=== PATIENT | male | born 1945 | race Caucasian/White ===

== ENCOUNTER 2016-11-13 18:22 | Inpatient (IN) | payer MEDICARE ==
[~2016-11-13] VITALS: Ht 188 cm; Wt 51.3 kg
--- NOTE | ~2016-11-13 | HEMODYNAMI ---
PATIENT:CONNER MCGEE MEDICAL RECORD: [id number] : 47 LOCATION:[place] [address] ADMISSION DATE: 11/13/16 Generatedon:11/19/201610:45 Patient name: CONNER MCGEE Patient #: [id number] SSN: : 1945 Date of study: 11/19/2016 Page: Of Hemodynamic Procedure Report Patient Data Patient Demographics Procedure consent was obtained First Name: CONNER Gender: Male Last Name: EVERARDO : 1945 [facility] Initial: E Age: 71 year(s) Patient #: [id number] Race: Unknown Additional ID: [id number] Contact details Address: [address] [place] [address] State: [place] City: [facility] Zip code: [address] Admission Admission Data Admission Date: 11/13/2016 Admission Time: 18:22 Room #: [facility] Procedure Procedure Types Cath Procedure Peripheral Cath Diagnostic Procedure Gastric J- Tube Replacement/Exchange Procedure Description Procedure Date Procedure Date: 11/19/2016 Procedure Start Time: 10:19 Procedure End Time: 10:44 Procedure Staff Name Function Earle Howard MD Performing Physician Rafat Santos RT Scrub Karla Navarro RN Nurse Shy Alfred RN Nurse Chandrika Viera RT Wine Consultant Chandrika Viera RT Monitor Procedure Data Cath Procedure Fluoroscopy Diagnostic fluoroscopy Total fluoroscopy Time: 7.6 time: 7.6 min min Diagnostic fluoroscopy Total fluoroscopy dose: dose: 45.8 mGy 45.8 mGy Contrast Material Contrast Material Type Amount (ml) Isovue 300 35 Diagnostic catheters Device Type Used For End Catheter Placement Merit Impress KA2 5Fr 65CM catheter Merit Impress KA 2 5Fr 40CM catheter Hemodynamics Rest Pre Cath Intra NCS Post Cath Procedure Log Time Note 9:37:11 Rafat Santos RT (R) (CV) sent for patient. Start room use. 9:37:14 Time tracking: Regular hours 9:48:25 Patient received from Other to IR Alert and oriented. Tansferred to table in Supine position. 9:48:45 Signed procedure consent form obtained from patient. 9:48:56 Pre-procedure instructions explained to patient. 9:49:03 Use device set IR Diagnostic 9:49:05 Bag Decanter opened to sterile field. 9:49:05 Sterile Angiographic Pack opened to sterile field. 9:49:09 Pre-op teaching completed and patient verbalized understanding. 9:49:12 Patient pain scale 0/10 ?. 9:49:22 Left abdomen area was prepped with chlora-prep and draped in sterile fashion 9:54:25 Sedation plan: Local Anesthetic Lidocaine 9:54:28 Sharps counted by scrub and verified by R.N. 9:58:43 Physician paged 9:58:43 Physician responded to page. 10:14:05 Physician arrived 10:15:01 --------ALL STOP TIME OUT------ 10:15:03 Final Timeout: patient, procedure, and site verified with staff and physician. All members of the team are in agreement. 10:15:20 Left abdomen site verified by team. 10:15:25 Physical assessment completed. ASA score P 2 - A patient with mild systemic disease as per Earle Howard MD. 10:16:59 A Merit Impress KA2 5Fr 65CM catheter was advanced over the wire and used for . 10:19:16 Terumo ANGLED SS 260CM glide wire opened to sterile field. 10:19:24 Procedure started. 10:19:24 Full Disclosure recording started 10:19:48 Contrast injected into the existing tube. 10:20:10 Catheter advanced into existing tube. 10:21:06 DILATOR, VESSEL 4/20 opened to sterile field. 10:21:37 Catheter was removed. Glidewire advanced into the existing tube. 10:29:24 LUCIA JEJUNAL FEEDING TUBE 14FR. opened to sterile field. 10:31:18 A Merit Impress KA 2 5Fr 40CM catheter was advanced over the wire and used for . 10:38:38 New J tube advanced over the wire. 10:39:09 Contrast was injected into the balloon to hold the tube in place. 10:40:15 Procedure ended.(Physican Out) 10:41:27 Contrast amount:Isovue 300 35ml. 10:42:09 Fluoroscopy time 07.60 minutes. 10:42:15 Fluoroscopy dose: 45.8 mGy 10:42:15 Flurop Dose total: 45.8 10:42:21 Sharps counted by scrub and verified by REbonieNEbonie 10:44:23 Procedure and supply charges have been captured, reviewed, submitted and are correct. 10:44:25 See physician's report for complete and final results. 10:44:30 Report given to Other. 10:44:35 Patient transfered to Other with Bed. 10:44:38 Procedure ended. 10:44:38 Full Disclosure recording stopped 10:44:50 End room use (Document Last) Device Usage Item Name Manufacture Quantity Catalog Hospital Part Current Minim al Lot# / Number Charge Number Stock Stock Serial# Code Bag Decanter Microtek 1 [id number] 5 [employer] Sterile Cardinal 1 [id number] 553912 5 Angiographic Health Pack [facility] 1 [id number] 332359 [id number] 5 Impress KA2 5Fr 65CM catheter Terumo Terumo 1 [id number] 108028 600828 366239 5 ANGLED SS 260CM glide wire DILATOR, [employer] 1 [id number] 11835 [id number] 5 [id number] VESSEL 12/05 LUCIA JEJUNAL JANICE-EVERARDO 1 0200-14 306251 5 FEEDING TUBE 14FR. [facility] 1 [id number] 396537 573309 5 Impress KA 2 5Fr 40CM catheter Signature Audit Dukedom Stage Time Signature Unsigned Intra-Procedure 11/19/2016 Chandrika Viera 10:45:09 AM RT(R) Signatures Monitor : Chandrika Viera Signature : RT Date : Time : [facility] [address] [place] [address]
--- NOTE | 2016-11-13 17:50 | NUR ---
RECIEVED BY AMBULANCE/STRETCHER.ALERT;ON O2@2L/NC.ORIENTED TO ROOM,SURROUNDINGS AND CL.
--- NOTE | 2016-11-13 18:00 | NUR ---
PT RECIEVED FROM [facility] VIA AMBULANCE STRETCHER. ADMITTED TO ROOM 1117 B. ADMIT FAXED TO ER ADMISSIONS. AWAITING HIM TO BE ENTERED TO DO ADMISSION.
[~2016-11-13 18:22] MED LIST: SULFATRIM SUSP100 ML GT
[2016-11-13 18:53] VITALS: BP 114/56
--- NOTE | 2016-11-13 19:45 | NUR ---
PT RECEIVED IN BED WITH EYES CLOSED AND CHEST RISING. NO SIGN/SYMPTOMS OF DISTRESS NOTED AT THIS TIME. NO NEEDS MADE KNOWN. WILL CONTINUE TO OBSERVE. CALL LIGHT IN REACH.
[2016-11-13 20:51] VITALS: BP 114/56
[2016-11-13] MEDS ORDERED: PREDNISOLON5 MG/5 ML PEG (23:06)
[2016-11-13] MEDS ORDERED: ELDERTONIC PT (23:12)
[2016-11-13] MEDS ORDERED: IPRATROPIUM BR21 MCG NASAL (23:23)
[2016-11-13] MEDS ORDERED: FLUOROMETHOLONE5 ML EACH EYE (23:36)
[2016-11-13] MEDS ORDERED: ASPIRIN300 MG RC (23:42)
[2016-11-13] MEDS ORDERED: DURAGESIC1 PATCH .1 TRANSDERM (23:49)
[2016-11-13] MEDS ORDERED: ARTIFICIAL TEAR15 ML EACH EYE (23:53)
[2016-11-14] MEDS ORDERED: LACTINEX GRANUL1 PCK GT (00:27)
[2016-11-14 01:35] VITALS: BP 114/56
--- NOTE | 2016-11-14 02:30 | NUR ---
PT RECEIVES FIRST DOSE OF SULFAMETHOXAZOLE/TRIMETHOPRIM WITH LACTINEX VIA J-TUBE. TOLERATED WELL. PT PRESENTS WITH BLOODY SPUTUM WITH A CLOT THEN BLOODY TINGED SPUTUM. SPUTUM LIGHT PINK TINGED. WILL CONTINUE TO OBSERVE FOR CHANGES. PT WITH HISTORY OF HEMOPTYSIS. CALL LIGHT IN REACH.
[2016-11-14 05:56] LABS: BASOPHILS 0.4 % (0.0-2.0); EOSINOPHILS 7.9 % (0-7); HEMATOCRIT 33.2 % (42.0-54.0); HEMOGLOBIN 10.6 g/dL (13.5-17.5); IMMATURE GRANULOCYTES 0.3 % (0-5); LYMPHOCYTES 21.2 % (15-50); MCH 30.3 pg (26.0-34.0); MCHC 31.9 g/dL (31.0-37.0); MCV 94.9 fL (80.0-100.0); MEAN PLATELET VOLUME 11.4 fL (7.4-10.4); MONOCYTES 13.4 % (2-11); NEUTROPHILS 56.8 % (40-80); PLATELET COUNT 197 10x3/uL (130-400); RDW 16.6 % (11.5-14.5); WBC 11.5 10x3/uL (4.8-10.8)
[2016-11-14 06:12] LABS: CALC OSMOLALITY 265 mosm/kg (275-300); CALCIUM 9.1 mg/dL (8.5-10.1); CARBON DIOXIDE 34.2 mmol/L (21.0-32.0); CHLORIDE - SERUM 95 mmol/L (98-107); GLUCOSE 87 mg/dL (74-106); POTASSIUM - SERUM 4.5 mmol/L (3.5-5.1); SODIUM 131 mmol/L (136-145); UREA NITROGEN 23 mg/dL (7-18); eGFR NON AFRICAN AMERICAN 78 mL/min (90-120)
--- NOTE | 2016-11-14 07:00 | NUR ---
PT WAS RECEIVED IN HIS ROOM AWAKE AND ORIENTED X 3. HE IS NPO. J-TUBE IS PATENT AND HAS CONTINUOUS FEEDING BEING DELIVERED THROUGH IT AT PRESCRIBED RATE OF FLOW. HE WEARS 02 PER NC AT 2L/MIN. VITAL SIGNS WNL. HE HAS AN IV IN HIS LEFT WRIST THAT IS SALINE LOCKED. HE IS SAXMAN. WEARS GLASSES BUT HE LEFT THEM AT HOME WELL HIS HEARING AIDES. WILL BE MONITORING PT THROUGHOUT THIS SHIFT AND ASSISTING PRN WITH ADL'S. NO SIGNS OF ANY DISCOMFORT OR DISTRESS. CALL LIGHT IS IN REACH.
--- NOTE | 2016-11-14 08:37 | NUR ---
PT IN BED WITH EYES CLOSED AND EASILY AROUSE TO VERBAL STIMULI. FENTANYL PATCH CHANGED PER ORDER. NO OTHER CONCERNS MADE KNOWN AT THIS TIME. CALL LIGHT IN REACH.
[2016-11-14 10:17] VITALS: Ht 188 cm; Wt 51.3 kg
--- NOTE | 2016-11-14 10:33 | NUR ---
Nutrition Note: Pt was on Vital 1.5 kcal formula at [facility]. [facility] does not currently carry this formula. Will change pt's formula to adequately meet pt's est nutritional needs. Will put order in to start Osmolite 1.5 @ 20 ml/hr. Increase 10 ml every 6 hours as tolerated to goal rate of 40 ml/hr. Water flushes 15 ml/hr for now as Na is low. Pt should be monitored closely for s/s of Refeeding Syndrome. RD will continue to monitor pt progress.
[2016-11-14 10:41] VITALS: BP 103/50
[2016-11-14 19:38] VITALS: BP 111/56
--- NOTE | 2016-11-15 00:36 | NUR ---
PT RECEIVED IN BED WITH HEAD OF BED WITH EYES OPEN WATCHING TV. NO COMPLAINTS OR NEEDS MADE KNOWN AT THIS TIME. CALL LIGHT IN REACH.
--- NOTE | 2016-11-15 06:05 | NUR ---
PT IN BED WITH EYES OPEN WATCHING TV. BEDDING CHANGED DUE TO SPILT URINE FROM URINAL. RECEIVED MEDICATIONS PER MAR. NO COMPLAINTS OR CONCERNS MADE KNOWN. CALL LIGHT IN REACH.
[2016-11-15 06:38] LABS: BASOPHILS 0.4 % (0.0-2.0); EOSINOPHILS 7.8 % (0-7); HEMATOCRIT 33.5 % (42.0-54.0); HEMOGLOBIN 10.6 g/dL (13.5-17.5); IMMATURE GRANULOCYTES 0.4 % (0-5); LYMPHOCYTES 24.8 % (15-50); MCH 30.4 pg (26.0-34.0); MCHC 31.6 g/dL (31.0-37.0); MEAN PLATELET VOLUME 11.4 fL (7.4-10.4); NEUTROPHILS 53.6 % (40-80); PLATELET COUNT 205 10x3/uL (130-400); RBC 3.49 10x6/uL (4.20-6.10); RDW 16.7 % (11.5-14.5); WBC 11.2 10x3/uL (4.8-10.8)
[2016-11-15 06:51] LABS: CALC OSMOLALITY 264 mosm/kg (275-300); CALCIUM 9.3 mg/dL (8.5-10.1); CARBON DIOXIDE 35.6 mmol/L (21.0-32.0); CHLORIDE - SERUM 95 mmol/L (98-107); GLUCOSE 77 mg/dL (74-106); POTASSIUM - SERUM 4.7 mmol/L (3.5-5.1); SODIUM 131 mmol/L (136-145); UREA NITROGEN 22 mg/dL (7-18); eGFR NON AFRICAN AMERICAN 78 mL/min (90-120)
--- NOTE | 2016-11-15 07:30 | NUR ---
RESTING QUIETLY IN BED CALL LIGHT IN REACH
[2016-11-15 08:44] VITALS: BP 91/45
[2016-11-15 19:38] VITALS: BP 100/53
--- NOTE | 2016-11-15 22:28 | NUR ---
PT IN BED, WATCHING TV, 02 @ 2L, VIA N/C, NO COMPLAINTS AT THIS TIME, BED IN LOWEST POSITION AND CALL LIGHT WITHIN REACH.
--- NOTE | 2016-11-15 23:12 | NUR ---
PT. IN BED WITH HOB UP GREATER THAN 30 DEGREES. PT. LYING ON HIS LEFT SIDE WITH EYES CLOSED AND RESP. EVEN. TUBEFEEDING VIA PUMP AT BEDSIDE. CALL LIGHT WITHIN REACH.
--- NOTE | 2016-11-16 03:00 | NUR ---
PT IN BED, EYES CLOSED, CHEST RISING AND FALLING, 02 @ 2L VIA N/C, BED IN LOWEST POSITION AND CALL LIGHT WITHIN REACH.
--- NOTE | 2016-11-16 05:15 | NUR ---
PT IN BED, EYES CLOSED, CHEST RISING AND FALLING, 02 @ 2L VIA N/C, OSMOLITE RUNNING, BED IN LOWEST POSITION AND CALL LIGHT WITHIN REACH.
[2016-11-16 07:00] VITALS: BP 96/49
--- NOTE | 2016-11-16 07:30 | NUR ---
RESTING ON LEFT SIDE IN BED. REMAINS NPO. TUBE FEEDS INFUSING ORDERED
[2016-11-16 07:43] LABS: MAGNESIUM - SERUM 1.8 mg/dL (1.8-2.4); PHOSPHOROUS 3.3 mg/dL (2.5-4.9)
[2016-11-16 11:34] LABS: EOSINOPHILS 6.5 % (0-7); HEMATOCRIT 33.2 % (42.0-54.0); HEMOGLOBIN 10.5 g/dL (13.5-17.5); IMMATURE GRANULOCYTES 0.5 % (0-5); LYMPHOCYTES 32.4 % (15-50); MCH 30.6 pg (26.0-34.0); MCHC 31.6 g/dL (31.0-37.0); MCV 96.8 fL (80.0-100.0); MEAN PLATELET VOLUME 12.1 fL (7.4-10.4); MONOCYTES 10.1 % (2-11); NEUTROPHILS 49.5 % (40-80); PLATELET COUNT 211 10x3/uL (130-400); RBC 3.43 10x6/uL (4.20-6.10); RDW 16.6 % (11.5-14.5); WBC 9.3 10x3/uL (4.8-10.8)
[2016-11-16 11:39] LABS: APTT 32.1 SECONDS (22.8-39.4); INR 0.95 (0.85-1.17); PROTIME 12.5 SECONDS (11.6-15.0)
--- NOTE | 2016-11-16 12:03 | NUR ---
STILL LAYING IN BED. IS TAKOTNA AND HAS VERY SOFT VOICE THAT IS HARD TO UNDERSTAND. USES URINAL.
--- NOTE | 2016-11-16 16:20 | NUR ---
WORKED IN THERAPY TODAY. IS VERY WEAK AND FRAIL.
[2016-11-16 21:17] VITALS: BP 102/54
--- NOTE | 2016-11-16 21:17 | NUR ---
PT IN BED, WATCHING TV, NO COMPLAINTS AT THIS TIME, BED IN LOWEST POSITION AND CALLL IGHT WITHIN REACH.
--- NOTE | 2016-11-16 23:27 | NUR ---
PT. IN BED WITH HOB UP AT LEAST 30 DEGREES AND HIS TUBEFEEDING IS INFUSING VIA PUMP WITHOUT ANY PROBLEMS. PT. DENIES ANY NEEDS AT THIS TIME AND HAS HIS CALL LIGHT WITHIN REACH.
--- NOTE | 2016-11-17 01:48 | NUR ---
D/C LEFT FOREARM SALINE LOC. CATH TIP INTACT. PT TOLERATED PROCEDURE WELL.
--- NOTE | 2016-11-17 02:17 | NUR ---
PT IN BED, WATCHING TV, 02 @ 2L VIA N/C, BED IN LOWEST POSITION AND CALL LIGHT WITHIN REACH.
--- NOTE | 2016-11-17 03:47 | NUR ---
PT IN BED, EYES CLOSED, CHEST RISING AND FALLING, 02 @ 2L VIA N/C, OSMOLITE RUNNING, BED IN LOWEST POSITION AND CALL LIGHT WITHIN REACH.
[2016-11-17 07:00] VITALS: BP 113/68
--- NOTE | 2016-11-17 07:30 | NUR ---
RESTING QUIETLY IN BED CALL LIGHT I NREACH
--- NOTE | 2016-11-17 12:02 | NUR ---
SITTING UP IN BED WATCHING TV. STILL HAVING SOME BLOODY SPUTUM AT TIMES. DOES NOT HAVE DIFFICULTY CLEARING AIRWAY. VERY WEAK. STILL GETTING CONTINUOUS TUBE FEEDS VIA JPEG AT 47CC/HR. USES URINAL IN BED FOR ELIMINATION NEEDS. VOICE IS A WHISPER AT BEST. WEARS OXYGEN AT ALL TIMES. DENIES PAIN
--- NOTE | 2016-11-17 16:00 | NUR ---
RESTING QUIETLY IN BED. LAYS ON SIDE. DENIES NEEDS
[2016-11-17 19:52] VITALS: BP 101/49
--- NOTE | 2016-11-17 19:52 | NUR ---
PT IN BED WITH HOB UP FOR COMFORT, WATCHING TV, EMPTIED URINAL, PT STATED HE HAS NOT HAD A BM IN ABOUT 8 DAYS, LEFT NOTE FOR DR. GARCÍA, BED IN LOWEST POSITION AND CALL LIGHT WITHIN REACH.
--- NOTE | 2016-11-18 00:07 | NUR ---
TUBE FEEDING BAG CHANGED.
--- NOTE | 2016-11-18 01:55 | NUR ---
PT. LYING ON HIS LEFT SIDE WITH HOB UP 30 DEGREES WITH TUBEFEEDING INFUSING VIA PUMP WITHOUT ANY ALARMS. EYES ARE CLOSED AND RESP. ARE EVEN. CALL LIGHT WITHIN REACH.
--- NOTE | 2016-11-18 04:24 | NUR ---
PT IN BED WITH HOB UP FOR COMFORT, EYES CLOSED, CHEST RISING AND FALLING, TUBE FEEDING RUNNING, BED IN LOWEST POSITION AND CALL LIGHT WITHIN REACH.
--- NOTE | 2016-11-18 06:00 | NUR ---
WHILE ATTEMPTING TO FLUSH FEEEDING TUBE OBSERVED FEEDING LEAKING FROM AROUND INSERTION SITE, CHARGE NURSE CEDRICK NIETO CAME TO ASSESS SITUATION AND NOTICED THERE WERE NO STITCHES HOLDING THE TUBE IN PLACED AND THAT IT LOOKED TO BE APPROXIMATELY 6 IN. OUT. TIME ATTEMPTED TO REINSERT AND WAS MET WITH RESISTANCE. SITE CLEANED AND DRAIN SPONGE SECURED TO SKIN AND TUBE SECURED ON TOP OF THAT. MD WILL BE NOTIFIED OF SITUATION.
[2016-11-18 07:26] LABS: BASOPHILS 0.5 % (0.0-2.0); EOSINOPHILS 1.4 % (0-7); IMMATURE GRANULOCYTES 0.5 % (0-5); LYMPHOCYTES 25.5 % (15-50); MCH 29.9 pg (26.0-34.0); MCHC 31.3 g/dL (31.0-37.0); MCV 95.5 fL (80.0-100.0); MEAN PLATELET VOLUME 11.4 fL (7.4-10.4); MONOCYTES 12.9 % (2-11); NEUTROPHILS 59.2 % (40-80); PLATELET COUNT 189 10x3/uL (130-400); RBC 3.35 10x6/uL (4.20-6.10); WBC 7.8 10x3/uL (4.8-10.8)
[2016-11-18 07:38] LABS: CALC OSMOLALITY 266 mosm/kg (275-300); CARBON DIOXIDE 33.2 mmol/L (21.0-32.0); CHLORIDE - SERUM 96 mmol/L (98-107); POTASSIUM - SERUM 4.7 mmol/L (3.5-5.1); SODIUM 132 mmol/L (136-145); UREA NITROGEN 25 mg/dL (7-18); eGFR NON AFRICAN AMERICAN 78 mL/min (90-120)
[2016-11-18 07:49] LABS: GLUCOSE 64 mg/dL (74-106)
[2016-11-18 08:00] VITALS: BP 104/66
--- NOTE | 2016-11-18 13:22 | NUR ---
DR TORRES CAME TO ROOM AND PULLED OLD J-PEG OUT AND REPLACED IT WITH 18G F/C. DR TORRES STATED THAT WILL WORK FOR NOW TIL NEW JPEG CAN BE PLACED IN INTERVENTIONAL RADIOLOGY.
--- NOTE | 2016-11-18 17:54 | NUR ---
RESTING IN BED WATCHING TV. FEEDING PUMP INFUSING VIA TEMP JPEG.. HAD LARGE RESULTS FROM SUPPISITORY.
--- NOTE | 2016-11-18 20:10 | NUR ---
PT RECEIVED IN BED TALKING ON PHONE. NO NEEDS MADE KNOWN AT THIS TIME. CALL LIGHT IN REACH.
[2016-11-18 20:45] VITALS: BP 112/54
--- NOTE | 2016-11-19 03:15 | NUR ---
PT IN BED WITH EYES CLOSED AND CHEST RISING. EASILY AROUSED TO VERBAL STIMULI. TUBE FEEDING BAGS AND FLUSHING SYRINGE CHANGED. NO CONCERNS MADE KNOWN. CALL LIGHT IN REACH.
--- NOTE | 2016-11-19 05:49 | NUR ---
PT IN BED WITH EYES OPEN WATCHING TV. RECEIVED MEDICATIONS VIA J-TUBE WITHOUT DIFFICULTY. NO CONCERN MADE KNOWN. CALL LIGHT IN REACH.
--- NOTE | 2016-11-19 08:12 | CN ---
PATIENT NAME:CONNER MCGEE MEDICAL RECORD: [id number] : 47 LOCATION:[id number] ADMIT DATE: 11/13/16 ACCOUNT: [id number] CONSULTING PHYSICIAN: BRIGID TORRES MD REFERRING PHYSICIAN: YANELY GARCÍA MD DATE OF CONSULTATION: 11/18/2016 Surgical Consultation CONSULTING PHYSICIAN: Dr. Brigid Torres. REASON FOR CONSULTATION: Nonfunctioning jejunostomy tube. HISTORY OF PRESENT ILLNESS: A 71-year-old male, who was admitted to rehab from his previous hospitalization including a left lung pneumonia, severe dysphagia, aspiration pneumonia. Just prior to that, he had had a J-tube replaced. He says that J-tube has been there for about 6 weeks. He has suffered from chronic illness, cachexia, physical deconditioning, severe weight loss. The patient has a feeding jejunostomy because he has had a history of partial gastrectomy. PAST MEDICAL HISTORY: Pneumonia, dysphagia, coronary artery disease, hypothyroidism, severe protein-calorie malnutrition, multiple myeloma, gastric cancer, chronic kidney disease, chronic steroid therapy. PAST SURGICAL HISTORY: Bone marrow transplant, vena cava filter, partial gastrectomy, partial colectomy, J-tube placement, and total hip replacement. ALLERGIES: COUMADIN, STATINS AND PENICILLINS. MEDICATIONS: Include Prelone, multivitamin, Atrovent, fluorometholone, aspirin, Duragesic, fentanyl, and Bactrim. HABITS: No history of alcohol or tobacco use currently. FAMILY HISTORY: Noncontributory. SOCIAL HISTORY: The patient is . He is currently a nonsmoker, nondrinker. He hopes to return home, ambulating with a walker and a cane. REVIEW OF SYSTEMS: A 12-point review of systems was obtained, pertinent positive and negative per the HPI. PHYSICAL EXAMINATION: VITAL SIGNS: Stable. He is afebrile, temperature 97.3, pulse rate 72, respirations 16, blood pressure ____, and satting 97% on 2 liters nasal cannula. GENERAL: Cachectic elderly male, in mild distress. EYES: Extraocular muscles are intact. EAR, NOSE, AND THROAT: Poor dentition. Mucous membranes are dry. LUNGS: Clear in the upper romero. HEART: Normal sinus rhythm. ABDOMEN: Soft, nontender, and nondistended. There is J-tube placed in the left lateral quadrant. EXTREMITIES: He is emaciated and thin. NEUROLOGIC: GCS is 15. CONSULT REPORT [id number] CONNER MCGEE LABORATORY DATA: Please see electronic medical record for full list of laboratory data. ASSESSMENT: A 71-year-old gentleman with pneumonia, dysphagia and J-tube or feeding tube dysfunction. PLAN: The patient's prior jejunostomy tube was removed. An 18-Prydeinig feeding tube was placed without fluoroscopic guidance at the bedside, it was secured in place. Next, a feeding tube study was performed, which showed the tube to be within the small bowel. Images were personally reviewed. May resume tube feedings and medications at this time. Recommend IR consultation for placement of a J-tube over a guidewire. The patient tolerated the procedure well. No complications occurred. TRANSINT:[id number] Voice Confirmation ID: [id number] DOCUMENT ID: [id number] BRIGID TORRES MD at 0812 CC: [id number] DICTATION DATE: 11/18/162155 CASTER INVESTMENT CASTING: 11/19/16 0137 ADM IN [place] [id number] [place] [address]
[2016-11-19 08:39] VITALS: BP 117/55
--- NOTE | 2016-11-19 09:45 | NUR ---
CONSENT OBTAINED FOR JEJUNOSTOMY TUBE REPLACMENT FROM PT. PT TRANSFERRED TO ir WITH STAFF VIA BED. PORTABLE o2 AT 2 LPM/NC.
--- NOTE | 2016-11-19 10:50 | NUR ---
PT ALERT AND ORIENTED X 3, RETURNED FROM IR WITH NEW JTUBE PLACED. RESP EVEN AND UNLAB O2 AT 2 LPM/NC INTACT. CALL-LIGHT AT SIDE. DENIES PAIN OR DISCOMFORT.
--- NOTE | 2016-11-19 13:03 | NUR ---
Nutrition Follow Up: Pt was asleep at the time of RD visit. Current TF via J tube of Osmolite 1.5 @ 47 ml/hr with 25 ml water flushes. Spoke with nursing who changed TF to original goal rate of 40 ml/hr with water flushes of 15 ml/hr. Chart reviewed. Pt is tolerating TF. No new wt to assess. I<O. +BM 11/19/16. Labs noted - Na low, Glucose low. Meds noted included Prednisolone, MV. Rec continue TF of Osmolite 1.5 @ 40 ml/hr with water flushes of 15 ml/hr. RD will continue to monitor pt progress.
--- NOTE | 2016-11-19 13:06 | RHP ---
PATIENT: CONNER MCGEE MEDICAL RECORD: [id number] ACCOUNT: [id number] LOCATION:[facility]17 : 47 ADMISSION DATE: 11/13/16 REHABILITATION HISTORY AND PHYSICAL EXAMINATION POST ADMISSION PHYSICIAN EXAMINATION Post-Admission Physical Examination and History and Physical DATE OF ADMISSION: 11/13/2016 ADMITTING DIAGNOSES: Left lung pneumonia due to infectious organisms, severe profound dysphagia and persistent aspiration pneumonia. HISTORY OF PRESENT ILLNESS: The patient is a 71-year-old gentleman who was admitted on November 13 with pneumonia of the left lung due to infectious organism, he had severe profound dysphagia and persistent aspiration pneumonia. He presented to Emergency Room at [facility] with hemoptysis. He had undergone replacement of his J-tube a few days prior. Due to his tube feeds being held, he was chronically ill, cachectic, weak, deconditioned, confused and had some focal motor deficits. He has had a progressive weight loss and loss of appetite. He was also hypoglycemic with blood sugar of 65. Chest x-ray showed left pleural effusion and left lower lobe pneumonia. Sputum was positive for Enterobacter. Swallow eval showed profound dysphagia and recommended he be n.p.o. with J-tube feedings, Vital 1.5 at 47 cc per hour with water at 25 cc per hour. Continue to work with speech therapy with swallowing exercises to improve his swallowing function to assess appropriateness of oral diet at some point. Prior to admission, he lives with his spouse. He is ambulatory with rolling walker outside the house and cane inside the home. He is currently moderate to max assist for ADLs and mobility, plans to regain his strength and return back home with his . COMORBIDITIES: In this patient includes hemoptysis, sputum culture positive for Enterobacter, deconditioned with fatigue, severe profound dysphagia, left pleural effusion, coronary artery disease, hypothyroidism, a BMI of less than 15, hypoglycemia, multiple myeloma, n.p.o. status, presence of vena cava filter, gastric cancer with status post gastrectomy, stage I chronic kidney disease, chronic steroid therapy, anxiety and depression. PAST MEDICAL HISTORY: Significant for electrolyte abnormalities and multiple myeloma. 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 He has had a vena cava filter placed in the past. He is on chronic steroid therapy, anxiety, depression, deconditioning, hyperthyroidism and decreased BMI. PAST SURGICAL HISTORY: Includes partial gastrectomy and colectomy. He has had a J-tube placement, a total hip and an IVC filter placement. ALLERGIES: COUMADIN, STATINS AND PENICILLIN. CURRENT MEDICATIONS: He is currently on Prelone liquid 2.5 mg daily and multivitamin daily. He is on Atrovent updrafts. He is on fluorometholone ophthalmic solution b.i.d. He is on aspirin suppository 300 mg daily and Duragesic patch 50 mcg q.72 hours. Artificial tears p.r.n., Bactrim 20 cc b.i.d. per his G-tube and Lactinex. HABITS: No alcohol or tobacco use. HISTORY AND PHYSICAL [id number] CONNER MCGEE FAMILY HISTORY: Noncontributory. SOCIAL HISTORY: The patient hopes to return back home with his and get back to his prior level of functioning of hopefully ambulating in the house just with a cane. REVIEW OF SYSTEMS: GENERAL: Does complain of weakness and fatigue. HEENT: Denies cold, cough, or congestion. CARDIOVASCULAR: Denies chest pain. PHYSICAL EXAMINATION: VITAL SIGNS: Stable, afebrile. GENERAL: A thin, cachectic gentleman, in no acute distress, alert upon exam. HEENT: Normocephalic and atraumatic. Mucosa appears somewhat dry. His TMs are normal. LUNGS: Clear in upper romero. He does have decreased sounds in his left base. HEART: Regular rate and rhythm. ABDOMEN: Benign. EXTREMITIES: Does have noted emaciated and thin extremities. NEUROLOGIC: Seems intact. LABORATORY DATA: His white count is 11.5, H&H 10.6 and 33.2, and his platelet count is 197. Sodium 131, potassium 4.5, BUN and creatinine of 23 and 1.0. Blood sugar was noted to be 87. ASSESSMENT: This is a 71-year-old gentleman admitted to the rehab with a working diagnosis of left lower lung pneumonia caused by Enterobacter. He has also got profound dysphagia and persistent aspiration pneumonia. The patient has potential to make improvements. We instituted the following multidisciplinary therapies including to, but not limited to physical, occupational, respiratory, speech, nutritional services, prosthetics and orthotics. Given his complex condition and risk for more complications, rehabilitation services cannot be provided at a low level of care such as a [place] [facility] facility. PLAN: 1. Admit to [facility] rehab for intensive inpatient therapy to include the following disciplines: A. Physical therapy to improve gait, all transfer skills and bed mobility to a modified independent level. B. Occupational therapy to improve activities of daily living to a modified independent level. C. Case management to assist with discharge planning and placement options. D. Nutrition to assist with nutritional needs. E. Rehabilitation nursing to assist in monitoring the patient's underlying medical conditions and to assist with any type of bowel or bladder management. 2. The patient's current medication and medical care will be continued. 3. The patient will be placed on standard fall precautions. 4. We will go ahead and watch his intake closely, get him to work with speech therapy and we will follow up with the care team this week. TRANSINT:[id number] Voice Confirmation ID: [id number] DOCUMENT ID: [id number] HISTORY AND PHYSICAL [id number] CONNER MCGEE SCOTT MD at 1306 CC: [id number] DICTATION DATE: 11/14/16 0847 IMPREGNATING MACHINE OPERATOR: 11/14/16 1337 ADM IN [place] [id number] [place] [id number]
[2016-11-19 19:16] VITALS: BP 108/56
--- NOTE | 2016-11-19 19:45 | NUR ---
PT RECEIVED IN BED WATCHING TV. NO COMPLAINTS OF PAIN OR DISCOMFORT. CALL LIGHT IN REACH.
--- NOTE | 2016-11-20 01:50 | NUR ---
PT IN BED WITH EYES CLOSED AND CHEST RISING. URINAL EMPTIED OF 100MLS YELLOW URINE. NO CONCERNS NOTED. CALL LIGHT IN REACH.
[2016-11-20 06:25] LABS: BASOPHILS 0.4 % (0.0-2.0); EOSINOPHILS 8.7 % (0-7); HEMATOCRIT 32.4 % (42.0-54.0); HEMOGLOBIN 10.4 g/dL (13.5-17.5); IMMATURE GRANULOCYTES 0.4 % (0-5); LYMPHOCYTES 24.3 % (15-50); MCH 30.6 pg (26.0-34.0); MCHC 32.1 g/dL (31.0-37.0); MCV 95.3 fL (80.0-100.0); MEAN PLATELET VOLUME 11.3 fL (7.4-10.4); MONOCYTES 12.9 % (2-11); NEUTROPHILS 53.3 % (40-80); PLATELET COUNT 184 10x3/uL (130-400)
[2016-11-20 06:28] LABS: WBC 10.5 10x3/uL (4.8-10.8)
--- NOTE | 2016-11-20 06:31 | NUR ---
PTIN BED WITH EYES OPEN WATCHING TV. RECEIVED MEDICATIONS PER MAR VIA J-TUBE WITHOUT DIFFICULTY. NO CONCERNS MADE KNOWN. CALL LIGHT IN REACH.
[2016-11-20 06:45] LABS: ANION GAP 8.3 mmol/L (8-16); CARBON DIOXIDE 30.2 mmol/L (21.0-32.0); CREATININE - SERUM 1.1 mg/dL (0.6-1.3); POTASSIUM - SERUM 4.5 mmol/L (3.5-5.1)
--- NOTE | 2016-11-20 08:00 | NUR ---
SHIFT ASSMT COMPLETED.FEEDING PATENT.SOME LIGHT RED DRAINAGE AROUND TUBE NOTED.SITE PINK,STOMA CARE DONE.DRSG APPLIED.
[2016-11-20 09:04] VITALS: BP 106/46
--- NOTE | 2016-11-20 12:00 | NUR ---
RESTING QUIETLY.CL IN REACH.
--- NOTE | 2016-11-20 14:10 | NUR ---
Nutrition Follow Up: Pt tolerating current TF regimen. Will put order in to increase rate to Osmolite 1.5 @ 45 ml/hr for 21 hours/day so that pt may do therapy daily (~3 hours/day). Water flushes 25 ml/hr. RD will continue to monitor pt progress.
--- NOTE | 2016-11-20 16:00 | NUR ---
RESTING QUIETLY.TUBE FEED INCREASED ORDERED.DENIES NEEDS.
--- NOTE | 2016-11-20 17:01 | NUR ---
CARE TEAM MEETING: TENATIVE DISCHARGE DATE IS 11/28/16 AND WILL BE RA AT NEXT MEETING. WILL CONTINUE TO FOLLOW WITH PATIENT.
[2016-11-20 19:54] VITALS: BP 110/50
--- NOTE | 2016-11-20 20:00 | NUR ---
PT IN BED WITH HOB UP FOR COMFORT, WATCHING TV, PT ASKED FOR ELBOW PADS, CALLED [employer]ATION UNIT INVESTIGATOR AND REQUESTED THEM, BED IN LOWEST POSITION AND CALL LIGHT WITHIN REACH.
--- NOTE | 2016-11-21 | NUR ---
PT IN BED WITH HOB UP FOR COMFORT, RESTING QUIETLY, RESPIRATIONS EVEN AND UNLABORED, 02 @ 2L VIA N/C, BED IN LOWEST POSITION AND CALL LIGHT WITHIN REACH.
--- NOTE | 2016-11-21 02:05 | NUR ---
IN BED, EYES CLOSED. RESTING ON LEFT SIDE.
--- NOTE | 2016-11-21 04:23 | NUR ---
PT IN BED, EYES CLOSED, CHEST RISING AND FALLING, 02 @ 2L VIA N/C, TUBE FEEDING RUNNING, BED IN LOWEST POSITION AND CALL LIGHT WITHIN REACH.
--- NOTE | 2016-11-21 06:16 | NUR ---
LEFT FOREARM SALINE LOC FLUSHES EASILY. PT TOLERATED PROCEDURE WELL.
--- NOTE | 2016-11-21 08:00 | NUR ---
SHIFT ASSMT COMPLETED.FEEDING PATENT.WILL FLUSH AND DISCONNECT FOR THERAPY.
[2016-11-21 09:04] VITALS: BP 108/51
--- NOTE | 2016-11-21 12:00 | NUR ---
RETURNED FROM THERAPY.CONNECTED TO FEEDING.CL IN REACH.
--- NOTE | 2016-11-21 19:20 | NUR ---
PT IN BED WITH HOB @ 30 DEGREES, WATCHING TV, TUBE FEEDING RUNNING, 02 @ 2L VIA N/C, PT HAS NO COMPLAINTS AT THIS TIME, BED IN LOWEST POSITION AND CALL LIGHT WITHIN REACH.
--- NOTE | 2016-11-21 20:40 | NUR ---
LEFT FOREARM SALINE LOC FLUSHES EASILY. SWAB CAPS IN USE. PT TOLERATED PROCEDURE WELL.
[2016-11-21 20:57] VITALS: BP 115/62
--- NOTE | 2016-11-22 01:30 | NUR ---
PT RESTING IN BED WATCHING TV, DENIES NEEDS. BED LOW. CL IN REACH.
--- NOTE | 2016-11-22 02:00 | NUR ---
TUBE FEEDING BAG CHANGED. PT TOLERATED PROCEDURE WELL.
--- NOTE | 2016-11-22 02:48 | NUR ---
PT IN BED WITH HOB @ 30 DEGREES, RESTING QUIETLY, RESPIRATIONS EVEN AND UNLABORED, 02 @ 2L VIA N/C, TUBE FEEDING RUNNING, BED IN LOWEST POSITION AND CALL LIGHT WITHIN REACH.
--- NOTE | 2016-11-22 05:53 | NUR ---
ASSISTED PT TO BATHROOM AND BACK TO BED. BED IN LOWEST POSITION AND CALL LIGHT WITHIN REACH.
--- NOTE | 2016-11-22 05:55 | NUR ---
PT IN BED WITH HOB AT 30 DEGREES, WATCHING TV, BED IN LOWEST POSITION AND CALL LIGHT WITHIN REACH.
--- NOTE | 2016-11-22 07:30 | NUR ---
RESTING QUIETLY IN BED. CALL LIGHT BY HAND. ALERT AND ORIENTED X3.
[2016-11-22 08:43] VITALS: BP 105/42
--- NOTE | 2016-11-22 12:01 | NUR ---
BACK TO ROOM AFTER THERAPY. HAD SHOWER TODAY WITH O.T. IS THIN AND FRAIL. STILL NPO AND RECEIVING TUBE FEEDS VIA JPEG
--- NOTE | 2016-11-22 13:14 | NUR ---
Nutrition Follow Up: Chart reviewed. Pt was asleep at the time of RD visit. Interview deferred. Spoke with nursing who reported that pt is tolerating current TF regimen. Pt with J tube receiving Osmolite 1.5 @ 45 ml/hr for 21 hours/day. I<O. No new wt to assess. Labs noted. Meds noted including Prednisolone, MV. Rec continue current TF regimen. RD will continue to monitor pt progress.
[2016-11-22 18:58] VITALS: BP 108/52
--- NOTE | 2016-11-22 19:20 | NUR ---
PT IN BED WITH HOB UP FOR COMFORT, WATCHING TV, NO COMPLAINTS AT THIS TIME, BED IN LOWEST POSITION AND CALL LIGHT WITHIN REACH.
--- NOTE | 2016-11-22 21:37 | NUR ---
LEFT WRIST SALINE LOC FLUSHED. SWAB CAPS IN USE. PT TOLERATED PROCEDURE WELL.
--- NOTE | 2016-11-22 22:30 | NUR ---
PT IN BED WITH HOB AT 30 DEGREES, EYES CLOSED, CHEST RISING AND FALLING, 02 @ 2L VIA N/C, BED IN LOWEST POSITION AND CALL LIGHT WITHIN REACH.
--- NOTE | 2016-11-23 02:50 | NUR ---
PT ACCIDENTALLY PULLED OUT IV. BANDAID PLACED ON INSERTION SITE.
--- NOTE | 2016-11-23 06:22 | NUR ---
PT AM MEDS ADMINISTERED. PT DENIES NEEDS.
[2016-11-23 07:00] VITALS: BP 107/53
--- NOTE | 2016-11-23 07:30 | NUR ---
RESTING QUIETLY IN BED. TUBE FEEDING INFUSING ORDERED.
--- NOTE | 2016-11-23 10:58 | NUR ---
WATCHING TV IN BED. NO S/S DISTRESS.
--- NOTE | 2016-11-23 14:01 | NUR ---
RESTING QUIETLY IN BED. NO S/S DISTRESS OR PAIN
--- NOTE | 2016-11-23 17:36 | NUR ---
RESTING QUIETLY IN BED. UP WITH MIN ASST TO BATHROOM. USES WALKER.
--- NOTE | 2016-11-23 19:45 | NUR ---
PT RECEIVED IN BED WITH EYES OPEN WATCHING TV. NO CONCERNS MADE KNOWN AT THIS TIME. CALL LIGHT IN REACH.
[2016-11-24 01:41] VITALS: BP 118/74
--- NOTE | 2016-11-24 03:13 | NUR ---
PT IN BED WATCHING TV. NO COMPLAINTS OR CONCERNS MADE KNOWN AT THIS TIME. CALL LIGHT IN REACH.
[2016-11-24 07:00] VITALS: BP 93/45
--- NOTE | 2016-11-24 08:00 | NUR ---
SHIFT ASSMT COMPLETED.CL IN REACH.[employer] FEEDS PATENT.DENIES NEEDS.
--- NOTE | 2016-11-24 12:00 | NUR ---
RESTING QUIETLY.HOB UP.
[2016-11-24 19:00] VITALS: BP 95/50
--- NOTE | 2016-11-24 23:34 | NUR ---
PT RECEIVED IN BED WITH EYES OPEN WATCHING TV. TUBE FEEDING RUNNING AT 45ML/HR. NO COMPLAINTS OR CONCERNS MADE KNOWN AT THIS TIME. MEDICATIONS GIVEN PER MAR VIA J-TUBE. J-TUBE PATENT AND FLUSHES SLOWLY. WILL CONTINUE TO OBSERVE. CALL LIGHT IN REACH.
[2016-11-25 01:39] VITALS: BP 95/50
--- NOTE | 2016-11-25 02:53 | NUR ---
PT IN BED WITH EYES CLOSED AND CHEST RISING. CONTINOUS TUBE FEEDING AT 45ML/HR WITH 25ML/HR OR WATER VIA J-TUBE. NO CONCERNS MADE KNOWN AT THIS TIME. CALL LIGHT IN REACH.
[2016-11-25 06:16] LABS: BASOPHILS 0.3 % (0.0-2.0); EOSINOPHILS 8.2 % (0-7); HEMATOCRIT 26.1 % (42.0-54.0); HEMOGLOBIN 8.3 g/dL (13.5-17.5); IMMATURE GRANULOCYTES 0.5 % (0-5); LYMPHOCYTES 20.6 % (15-50); MCH 30.9 pg (26.0-34.0); MCHC 31.8 g/dL (31.0-37.0); MEAN PLATELET VOLUME 11.8 fL (7.4-10.4); MONOCYTES 13.3 % (2-11); NEUTROPHILS 57.1 % (40-80); PLATELET COUNT 179 10x3/uL (130-400); RBC 2.69 10x6/uL (4.20-6.10); RDW 17.5 % (11.5-14.5); WBC 8.8 10x3/uL (4.8-10.8)
[2016-11-25 06:33] LABS: ANION GAP 8.5 mmol/L (8-16); CALCIUM 8.4 mg/dL (8.5-10.1); CARBON DIOXIDE 28.4 mmol/L (21.0-32.0); CREATININE - SERUM 1.1 mg/dL (0.6-1.3); POTASSIUM - SERUM 3.9 mmol/L (3.5-5.1)
--- NOTE | 2016-11-25 07:31 | NUR ---
RESTING QUIETLY IN BED. CALL LIGHT IN REACH
--- NOTE | 2016-11-25 07:41 | NUR ---
PT IN BED WITH EYES OPEN WATCHING TV. RECEIVED MEDICATIONS PER MAR VIA J-TUBE WITHOUT DIFFICULTY. ASSISTED TO BATHROOM WITH NO BM REPORTED. CONTINUOUS FEEDING. NO NEEDS OR CONCERNS MADE KNOWN. CALL LIGHT IN REACH.
[2016-11-25 08:14] VITALS: BP 91/43
--- NOTE | 2016-11-25 09:21 | NUR ---
WATCHING TV IN BED. CONNECTED TO FEEDING TUBE FOR CONTINUOUS FEEDINGS. UP WIHT MINIMAL ASST TO USE BATHROOM. HE USES WALKER. IS THIN AND FRAIL
--- NOTE | 2016-11-25 09:55 | NUR ---
Nutrition Follow Up: Chart reviewed. Pt tolerating current TF regimen. I>O. +BM 11/24/16. No new wt to assess. Labs noted - Na remains low but improving. Meds noted including MV, Prednisolone. Rec continue current TF regimen of Osmolite 1.5 @ 45 ml/hr for 21 hours/day. Water flushes 25 ml/hr. Please obtain current wt on pt. RD will continue to monitor pt progress.
--- NOTE | 2016-11-25 13:13 | NUR ---
REMAINS NPO. UP WITH THERAPY.
--- NOTE | 2016-11-25 18:15 | NUR ---
RESTING QUIETLY IN BED. FAMILY VISITED TODAY
--- NOTE | 2016-11-25 19:00 | NUR ---
PT IN BED WITH HOB UP FOR COMFORT, WATCHING TV, PT REQUESTED TO CHANGE THE TV CHANNEL, TUBE FEEDING RUNNING, 02 @ 2L VIA N/C, BED IN LOWEST POSITION AND CALL LIGHT WITHIN REACH.
[2016-11-25 20:26] VITALS: BP 108/52
--- NOTE | 2016-11-25 23:00 | NUR ---
PT IN BED WITH HOB UP FOR COMFORT, WATCHING TV, TUBE FEEDING RUNNING, 02 @ 2L VIA N/C, BED IN LOWEST POSITION AND CALL LIGHT WITHIN REACH.
--- NOTE | 2016-11-26 00:06 | NUR ---
OSMOLITE BAG CHANGED. PT TOLERATED PROCEDURE WELL.
--- NOTE | 2016-11-26 01:05 | NUR ---
IN BED, RESTING QUIETLY. HOB UP 30 DEGREES.
--- NOTE | 2016-11-26 04:34 | NUR ---
PT IN BED WITH HOB UP FOR COMFORT, RESTING QUIETLY, RESPIRATIONS EVEN AND UNLABORED, TUBE FEEDING RUNNING, 02 @ 2L VIA N/C, BED IN LOWEST POSITION AND CALL LIGHT WITHIN REACH.
--- NOTE | 2016-11-26 07:30 | NUR ---
RESTING QUIETLY WHILE LAYING ON SIDE IN BED IN HIS ROOM. EYES CLOSED. CALL LIGHT IN REACH
[2016-11-26 12:39] VITALS: BP 95/56
--- NOTE | 2016-11-26 12:56 | NUR ---
RESTING ON SIDE. VOICE IS HOARSE AND SOFT. PT IS THIN AND FRAIL.
--- NOTE | 2016-11-26 17:50 | NUR ---
RESTING QUIETLY IN BED. TUBE FEEDING INFUSING ORDERED. NO S/S DISTRESS. CALL LIGHT IN REACH
[2016-11-26 19:14] VITALS: BP 114/64
[2016-11-27 06:48] LABS: BASOPHILS 0.4 % (0.0-2.0); EOSINOPHILS 12.1 % (0-7); HEMATOCRIT 25.9 % (42.0-54.0); HEMOGLOBIN 8.3 g/dL (13.5-17.5); IMMATURE GRANULOCYTES 0.5 % (0-5); MCH 31.3 pg (26.0-34.0); MCV 97.7 fL (80.0-100.0); MEAN PLATELET VOLUME 11.8 fL (7.4-10.4); MONOCYTES 11.1 % (2-11); NEUTROPHILS 46.9 % (40-80); PLATELET COUNT 181 10x3/uL (130-400); RBC 2.65 10x6/uL (4.20-6.10); RDW 18.3 % (11.5-14.5); WBC 8.1 10x3/uL (4.8-10.8)
[2016-11-27 07:01] LABS: CALC OSMOLALITY 267 mosm/kg (275-300); CALCIUM 8.7 mg/dL (8.5-10.1); CHLORIDE - SERUM 98 mmol/L (98-107); CREATININE - SERUM 0.8 mg/dL (0.6-1.3); GLUCOSE 94 mg/dL (74-106); POTASSIUM - SERUM 4.1 mmol/L (3.5-5.1); SODIUM 132 mmol/L (136-145); UREA NITROGEN 22 mg/dL (7-18); eGFR NON AFRICAN AMERICAN > 90 mL/min (90-120)
--- NOTE | 2016-11-27 08:00 | NUR ---
SHIFT ASSMT COMPLETED.DENIES NEEDS.[employer] PATENT ORDERED.
[2016-11-27 09:10] VITALS: BP 94/48
--- NOTE | 2016-11-27 12:00 | NUR ---
SITTING IN ROOM.FAMILY AT BEDSIDE.
[2016-11-27] MEDS ORDERED: PROTONIX FOR OR40 MG PEG (12:20)
--- NOTE | 2016-11-27 16:00 | NUR ---
INSTRUCTED PT AND WITH DAUGHTER STANDING BY IN JTUBE FEEDINGS AND CARE,FLUSHES,CONNECTING TO THE PUMP AND HOW TO FLUSH THE TUBE.DEMONSTRATED WITH SOME DIFFICULITY IN CONNECTING THE TUBING AND PULLING UP THE MEDICATION BUT DEMONSTRATED THAT HE COULD HELP WITH DIFFICULITIES.FOLLOWED INSTRUCTION WELL.
--- NOTE | 2016-11-27 17:15 | NUR ---
CARE TEAM MEETING: PATIENT SPOUSE AND DAUGHTER ATTENDED MEETING. TENATIVE DISCHARGE DATE IS 11/28/16. WILL CONTNUE TO FOLLOW WITH PATIENT
[2016-11-27 19:15] VITALS: BP 106/76
--- NOTE | 2016-11-27 19:45 | NUR ---
PT IN BED WITH HOB UP FOR COMFORT, LYING ON LEFT SIDE, TUBE FEEDING RUNNING, BED IN LOWEST POSITION AND CALL LIGHT WITHIN REACH.
--- NOTE | 2016-11-27 23:45 | NUR ---
PT IN BED WITH HOB UP FOR COMFORT, WATCHING TV, 02 @ 2L VIA N/C, TUBE FEEDING RUNNING, BED IN LOWEST POSITION AND CALL LIGHT WITHIN REACH.
--- NOTE | 2016-11-28 02:05 | NUR ---
TUBE FEEDING BAG CHANGED.
--- NOTE | 2016-11-28 03:47 | NUR ---
PT IN BED WITH EYES CLOSED AND CHEST RISING. NO SIGN/SYMPTOMS OF DISTRESS NOTED. ON CONTINOUS FEEDING AT 45/HR OF OSMOLITE WITH FLUSHES 25 ML/HR. NO CONCERNS MADE KNOWN AT THIS TIME. CALL LIGHT IN REACH.
[2016-11-28 05:17] LABS: BASOPHILS 0.2 % (0.0-2.0); EOSINOPHILS 8.7 % (0-7); HEMOGLOBIN 8.4 g/dL (13.5-17.5); IMMATURE GRANULOCYTES 0.3 % (0-5); LYMPHOCYTES 23.7 % (15-50); MCH 31.2 pg (26.0-34.0); MCHC 32.3 g/dL (31.0-37.0); MCV 96.7 fL (80.0-100.0); MEAN PLATELET VOLUME 11.4 fL (7.4-10.4); MONOCYTES 13.8 % (2-11); NEUTROPHILS 53.3 % (40-80); PLATELET COUNT 175 10x3/uL (130-400); RBC 2.69 10x6/uL (4.20-6.10); WBC 9.4 10x3/uL (4.8-10.8)
[2016-11-28 05:36] LABS: CALC OSMOLALITY 269 mosm/kg (275-300); CALCIUM 8.7 mg/dL (8.5-10.1); CARBON DIOXIDE 32.3 mmol/L (21.0-32.0); CHLORIDE - SERUM 98 mmol/L (98-107); CREATININE - SERUM 0.9 mg/dL (0.6-1.3); GLUCOSE 90 mg/dL (74-106); POTASSIUM - SERUM 4.1 mmol/L (3.5-5.1); SODIUM 134 mmol/L (136-145); UREA NITROGEN 19 mg/dL (7-18); eGFR NON AFRICAN AMERICAN 89 mL/min (90-120)
--- NOTE | 2016-11-28 08:00 | NUR ---
SHIFT ASSMT COMPLETED.DENIES NEEDS.PLANS FOR DC HOME TODAY.FEEDING PATENT/J-TUBE.
[2016-11-28 08:19] VITALS: BP 100/57
--- NOTE | 2016-11-28 12:00 | NUR ---
AND DAUGHTER HERE.WAITNG ON PROCEDURE FOR SWALLOWING WITH SPEECH.
--- NOTE | 2016-11-28 12:34 | NUR ---
PATIENT DISCHARGING HOME WITH FAMILY TODAY. [facility] WILL FOLLOW WITH PATIENT. [facility] WILL PROVIDE FORMULA AND FEEDING PUMP WITH SUPPLIES TO PATIENT. PATIENT HAS A PENDING APPOINTMENT WITH HIS SC PHYSCIAN 12/03/16 @ 10:15. PATIENT CHOICE FORM FOR HOME HEALTH AND [facility] FORM SIGNED, EXPLAINED AND FILED IN CHART. PATIENT EDUCATED ON FEEDING PUMP PER HIS PRIMARY NURSE. ORDERS HAVE BEEN FAXED WITH CONFORMATION RECIEVED
--- NOTE | 2016-11-28 13:35 | NUR ---
TAKEN TO XRAY/WC FOR BARIUM SWALLOW W/SPEECH.
--- NOTE | 2016-11-28 15:30 | NUR ---
DISCHARGED TO HOME.HOME CARE INSTRUCTIONS REVIEWED.FEEDINGS WITH J-TUBE REVIEWED;ALONG WITH FLUSHES,AND PRECAUTIONS.MEDS CALLED INTO [facility]
--- NOTE | 2016-11-28 17:12 | NUR ---
SHIFT ASSMT COMPLETED,WILL DC HOME TODAY.FEEDING PATENT.
== END 2016-11-28 15:35 | disposition home health service (06) | DRG 178 ==
LOC: D.REHAB 18:22
PROVIDERS: Internal Medicine Pulmonary Disease; ADMIT Emergency Medicine
DX: J15.6 Pneumonia due to other Gram-negative bacteria (principal); R04.2 Hemoptysis; J90 Pleural effusion, not elsewhere classified; Z68.1 Body mass index [BMI] 19.9 or less, adult; C90.00 Multiple myeloma not having achieved remission; R13.10 Dysphagia, unspecified; R53.83 Other fatigue; I25.10 Atherosclerotic heart disease of native coronary artery without angina pectoris; E03.9 Hypothyroidism, unspecified; E16.2 Hypoglycemia, unspecified; N18.1 Chronic kidney disease, stage 1; Z79.01 Long term (current) use of anticoagulants; F41.8 Other specified anxiety disorders

== ENCOUNTER 2016-12-14 13:01 | Emergency (ER) | payer OTHER ==
[2016-11-14 10:17] VITALS: BMI 14.5
--- NOTE | ~2016-12-14 | OP ---
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 PROCEDURE: Replacement of gastrojejunal feeding tube. SURGEON: Carlos Franco MD STORE LEAD: None. BLOOD LOSS: Minimal. ANESTHESIA: None. COMPLICATIONS: None. The risks, possible complications and alternatives to procedure were explained to the patient. He elects to proceed. OPERATIVE COURSE: I removed the patient's indwelling gastrojejunal feeding tube. We did not have another feeding tube that similar to this one; therefore, I placed a different tube. It was a gastrojejunal feeding tube had a guidewire, was advanced down through the feeding tube. I tested the balloon. It was patent without any leakage. I then lubricated the gastrojejunal feeding tube. I advanced it down through the enterocutaneous stoma. While doing this, I withdrew the wire. I advanced the balloon so, it was within the jejunum. I inflated the balloon. I pushed the flange down against the anterior abdominal wall. The Gastrografin was instilled through the jejunal port. The midlevel provider from the Emergency Room called me and told me that the feeding tube was adequately placed. I told him that the feeding tube can be used immediately. TRANSINT:[id number] Voice Confirmation ID: [id number] DOCUMENT ID: [id number] CARLOS FRANCO MD CC: BRIGID TORRES MD [id number] DICTATION DATE: 12/15/[address] LANDSCAPE ARCHITECT: 12/15/16 1624 DEP ER 12/14/[address] [facility] [address] [id number]
[~2016-12-14 13:01] MED LIST changes: +ARTIFICIAL TEAR15 ML EACH EYE; +ASPIRIN300 MG RC; +DURAGESIC1 PATCH .1 TRANSDERM; +ELDERTONIC PT; +FLUOROMETHOLONE5 ML EACH EYE; +IPRATROPIUM BR21 MCG NASAL; +LACTINEX GRANUL1 PCK GT; +PREDNISOLON5 MG/5 ML PEG; +PROTONIX FOR OR40 MG PEG
== END 2016-12-14 18:24 | disposition home or self-care (01) ==
LOC: D.ER 13:01
DX: K94.10 Enterostomy complication, unspecified (principal); C90.00 Multiple myeloma not having achieved remission; C18.9 Malignant neoplasm of colon, unspecified

== ENCOUNTER → 2016-12-16 10:38 | Outpatient (CLI) | payer MEDICARE, OTHER ==
[2016-11-14 10:17] VITALS: BMI 14.5
--- NOTE | ~2016-12-16 | HEMODYNAMI ---
PATIENT:CONNER MCGEE MEDICAL RECORD: [id number] : 47 [id number] ADMISSION DATE: 12/16/16 Generatedon:12/16/201611:39 Patient name: CONNER MCGEE Patient #: [id number] SSN: : 1945 Date of study: 12/16/2016 Page: Of Hemodynamic Procedure Report Patient Data Patient Demographics Procedure consent was obtained First Name: CONNER Gender: Male Last Name: EVERARDO : 1945 Middle Initial: E Age: 71 year(s) Patient #: [id number] Race: Unknown Additional ID: [id number] Contact details [address]: [address] [place] [address] [address] State: [place] City: [facility] Zip code: [address] Admission Admission Data Admission Date: 12/16/2016 Admission Time: 10:38 Procedure Procedure Types Cath Procedure Peripheral Cath Diagnostic Procedure Miscellaneous Procedure Description Procedure Date Procedure Date: 12/16/2016 Procedure Start Time: 11:25 Procedure Staff Name Function Johann Vicente MD Performing Physician Chandrika Viera RT Scrub Shy Alfred RN Nurse Karla Navarro RN Nurse Rafat Santos RT Monitor Procedure Data Cath Procedure Fluoroscopy Diagnostic fluoroscopy Total fluoroscopy Time: 1.1 time: 1.1 min min Diagnostic fluoroscopy Total fluoroscopy dose: 5 dose: 5 mGy mGy Contrast Material Contrast Material Type Amount (ml) Isovue 300 30 Hemodynamics Rest Pre Cath Intra NCS Post Cath Procedure Log Time Note 11:09:54 Time tracking: Regular hours 11:10:03 Plan of Care:Comfort level will be maintained., Respiratory function will remain adequate., Patient/ family verbilizes understanding of procedure., Procedure tolerated without complication., Recovers from procedure without complications.. 11:10:16 Patient received from Other to IR Alert and oriented. Tansferred to table in Supine position. 11:10:18 Warm blankets applied, and najma hugger turned on for patient comfort. 11:10:20 Correct patient and procedure confirmed by team. 11:10:22 Signed procedure consent form obtained from patient. 11:10:28 Full Disclosure recording started 11:10:34 Pre-procedure instructions explained to patient. 11:10:38 Pre-op teaching completed and patient verbalized understanding. 11:10:42 Family in waiting room. 11:10:50 Is the patient allergic to Iodine/contrast media? No. 11:13:25 Is patient on blood thinner?No 11:13:27 Patient diabetic? No. 11:14:11 Left abdomen area was prepped with chlora-prep and draped in sterile fashion 11:24:21 [facility] .035 145 glide wire opened to sterile field. 11:24:25 Physician arrived 11::25 --------ALL STOP TIME OUT------ 11::26 Final Timeout: patient, procedure, and site verified with staff and physician. All members of the team are in agreement. 11:24:35 Left abdomen site verified by team. 11:24:39 Physical assessment completed. ASA score P 3 - A patient with severe systemic disease as per Johann Vicente MD. 11:24:48 Sedation plan: Local Anesthetic Lidocaine 11:25:23 LUCIA JEJUNAL FEEDING TUBE 14FR. opened to sterile field. 11:25:40 Procedure started. 11:36:01 20 fr. j tube exchanged 11:36:08 Procedure ended.(Physican Out) 11:36:39 Fluoroscopy time 01.10 minutes. 11:36:43 Fluoroscopy dose: 5 mGy 11:36:43 Flurop Dose total: 5 11:36:51 Contrast amount:Isovue 300 30ml. 11:36:53 Sharps counted by scrub and verified by R.N. 11:36:54 Insertion/operative site no bleeding no hematoma. 11:37:00 Post Abdominal area:stable 11:37:05 Post procedure instruction explained to patient.Patient verbalizes understanding. 11:37:06 Procedure and supply charges have been captured, reviewed, submitted and are correct. 11:37:52 Report given to Other. 11:38:17 Patient transfered to Other with Ambulatory. Device Usage Item Name Manufacture Quantity Catalog Hospital Part Current Minimal Lo t# / Number Charge Number Stock Stock Serial# Code [facility] 1 [id number] [facility] .035 145 glide wire LUCIA JANICE-EVERARDO 1 [id number] JEJUNAL FEEDING TUBE 14FR. Signature Audit [place] [facility] Time Signature Unsigned Intra-Procedure 12/16/2016 Rafat 11:39:09 AM Tom RT (R) (CV) Signatures Monitor : Rafat Signature : Tom RT Date : Time : [id number] [place] [address]
== END | disposition home or self-care (01) ==
LOC: D.OPS 10:38 → D.SP 11:00
DX: K94.23 Gastrostomy malfunction (principal)